=== PATIENT | female | born 1975 | race Two or more races ===

== ENCOUNTER 2018-09-20 20:17 | Emergency (ER) | payer MEDICAID ==
[~2018-09-20] VITALS: Ht 152.4 cm; Wt 79.4 kg
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
[2018-09-20] MEDS ORDERED: HYDROCODONE/APAP 5/325MG 1 EACH TABLET PO ONE (23:00)
[2018-09-20] MEDS ORDERED: ONDANSETRON 4 MG TAB.RAPDIS SL ONE (23:00)
[2018-09-20] MEDS ORDERED: ONDANSETRON 4 MG TAB.RAPDIS ONE (23:09)
[2018-09-20] MEDS ORDERED: HYDROCODONE/APAP 5/325MG 1 EACH TABLET ONE (23:09)
--- NOTE | 2018-09-20 23:14 | NUR ---
PT MEDICATED ORDERED.
--- NOTE | 2018-09-20 23:16 | NUR ---
PT TRANSPORTED TO RADIOLOGY FOR CT.
--- NOTE | 2018-09-21 00:45 | NUR ---
Patient discharged to home in stable condition. Written and verbal after care instructions given. Patient verbalizes understanding of instruction. ambulatory with a steady gait
[2018-09-21 00:46] VITALS: BP 132/64
== END 2018-09-21 00:46 | disposition home or self-care (01) ==
LOC: ER 20:20
DX: M62.838 Other muscle spasm (principal); R51 Headache; M54.2 Cervicalgia; V49.49XA Driver injured in collision with other motor vehicles in traffic accident, initial encounter; Y93.89 Activity, other specified; Y92.410 Unspecified street and highway as the place of occurrence of the external cause; Y99.8 Other external cause status
CPT/HCPCS: 70450; 72040; 99284; A4606; Q0162